=== PATIENT | male | born 1960 | race Caucasian/White ===

== ENCOUNTER 2019-06-18 07:09 | Emergency (ER) | payer OTHER ==
[~2019-06-18] VITALS: Ht 177.8 cm; Wt 104.3 kg
[~2019-06-18 07:09] MED LIST: CRESTOR10 MG PO; FENOFIBRATE160 MG PO; FLOMAX PO; HYDROCHLOROTHIA25 M1 PO; LISINOPRIL20 MG PO; PERCOCET 5-3251 EACH PO; SYNTHROID100 MC1 PO; ZETIA10 MG PO; ZOFRAN ODT4 MG PO
[2019-06-18 07:31] LABS: URINE BILIRUBIN NEGATIVE (Negative); URINE BLOOD 2+ (Negative); URINE CLARITY CLEAR; URINE COLOR YELLOW; URINE GLUCOSE-RANDOM* NEGATIVE (Negative); URINE KETONES NEGATIVE (Negative); URINE LEUKOCYTES-REFLEX NEGATIVE (Negative); URINE NITRITE-REFLEX NEGATIVE (Negative); URINE PROTEIN (DIPSTICK) NEGATIVE (Negative); URINE UROBILINOGEN 0.2 E.U./dl (0.2-1.0)
[2019-06-18] MEDS ORDERED: FENOFIBRATE160 MG PO (07:40)
[2019-06-18] MEDS ORDERED: SPIRONOLACTONE25 MG PO (07:40)
[2019-06-18] MEDS ORDERED: FUROSEMIDE 20 M20 MG PO (07:40)
[2019-06-18] MEDS ORDERED: ELIQUIS5 MG PO (07:41)
[2019-06-18] MEDS ORDERED: CARVEDILOL25 MG PO (07:42)
[2019-06-18] MEDS ORDERED: VITAMIN D35000 UNIT PO (07:43)
[2019-06-18] MEDS ORDERED: DIGITEK125 MC1 PO (07:43)
[2019-06-18] MEDS ORDERED: MELOXICAM15 MG PO (07:43)
[2019-06-18] MEDS ORDERED: VITAMIN E1000 UNIT PO (07:44)
[2019-06-18] MEDS ORDERED: FISH OIL 1,001000 M3 PO (07:44)
[2019-06-18] MEDS ORDERED: MULTIVITAMINS PO (07:44)
[2019-06-18 07:46] LABS: BACTERIA-REFLEX 1-9 Few /HPF (None Seen); CASTS None Seen /LPF (None Seen); CRYSTALS None Seen /LPF (None Seen); SQUAMOUS None Seen /LPF (0-3); URINE WBC-REFLEX 0-5 Rare /HPF (0-5)
[2019-06-18 08:08] LABS: ABSOLUTE NEUTROPHILS 4.5 thou/uL (1.4-8.2); BASOPHILS 1.1 % (0.0-2.0); HEMATOCRIT 45.5 % (42.0-52.0); HEMOGLOBIN 15.7 gm/dL (14.0-18.0); LYMPHOCYTES 22.9 % (24.0-44.0); MCH 31.9 pg (26.0-34.0); MCHC 34.5 g/dL (28.0-37.0); MCV 92.4 fL (80.0-100.0); MONOCYTES 6.9 % (1.0-8.0); PLATELET COUNT 149 thou/uL (150-400); POLYS 67.1 % (36.0-66.0); RBC 4.92 mil/uL (4.50-6.00); RDW 13.1 % (10.5-14.5); WBC 6.7 thou/uL (4.0-11.0)
[2019-06-18 08:11] LABS: CALCIUM 10.5 mg/dL (8.5-10.1); CREATININE 1.3 mg/dL (0.7-1.3)
[2019-06-18] MEDS ORDERED: SENNA-DOCUSATE1 EAC1 PO (10:15)
[2019-06-18] MEDS ORDERED: FLOMAX0.4 MG PO (10:15)
[2019-06-18] MEDS ORDERED: NORCO 5-325 TA1 EAC1 PO (10:15)
[2019-06-18 10:29] VITALS: BP 106/71
== END 2019-06-18 10:35 | disposition home or self-care (01) ==
LOC: ER 07:09
PROVIDERS: Emergency Medicine
DX: R31.9 Hematuria, unspecified (principal); M54.5 Low back pain; I10 Essential (primary) hypertension; E78.00 Pure hypercholesterolemia, unspecified; E03.9 Hypothyroidism, unspecified; I48.91 Unspecified atrial fibrillation; Z79.899 Other long term (current) drug therapy; Z90.89 Acquired absence of other organs; Z98.890 Other specified postprocedural states; Z87.442 Personal history of urinary calculi